=== PATIENT | female | born 1975 | race African-American/Black ===

== ENCOUNTER 2017-06-13 09:04 | Emergency (ER) | payer OTHER ==
[~2017-06-13] VITALS: Ht 160 cm; Wt 68.2 kg
[2017-06-13] MEDS ORDERED: ABX PO (09:37)
[2017-06-13 09:56] VITALS: BP 120/84
[2017-06-13 10:15] LABS: APPEARANCE,URINE CLEAR (CLEAR); GLUCOSE, URINE (UA) NEGATIVE (NEGATIVE); KETONES,URINE NEGATIVE (NEGATIVE); LEUKOCYTE ESTERASE ,URINE NEGATIVE (NEGATIVE); OCCULT BLOOD,URINE NEGATIVE (NEGATIVE); PH,URINE 7.5 (5.0-8.0); PROTEIN,URINE NEGATIVE (NEGATIVE)
[2017-06-13 10:24] LABS: RBC,URINE None Seen /HPF (0-2); WBC,URINE None Seen /HPF (0-5)
[2017-06-13] MEDS ORDERED: MetroNIDAZOLE 250 MG TABLET PO ONE (11:00)
[2017-06-15 00:07] LABS: GC DNA N.A. AMPLIFY Negative (Negative)
== END 2017-06-13 11:02 | disposition home or self-care (01) ==
LOC: EMS 09:09
DX: N76.0 Acute vaginitis (principal); B96.89 Other specified bacterial agents as the cause of diseases classified elsewhere
CPT/HCPCS: 87491; 87591; 99284

== ENCOUNTER 2017-08-03 04:51 | Emergency (ER) | payer OTHER ==
[~2017-08-03] VITALS: Ht 160 cm; Wt 61.4 kg
[~2017-08-03 04:51] MED LIST: ABX PO
[2017-08-03 06:20] VITALS: BP 119/80
[2017-08-03] MEDS ORDERED: IBUPROFEN 600 MG TABLET PO ONE (06:30)
[2017-08-03] MEDS ORDERED: CYCLOBENZAPRINE HCL 10 MG TABLET PO ONE (06:30)
== END 2017-08-03 06:49 | disposition home or self-care (01) ==
LOC: EMS 04:52
DX: M43.6 Torticollis (principal)
CPT/HCPCS: 99283

== ENCOUNTER 2018-03-30 14:37 | Emergency (ER) | payer OTHER ==
[~2018-03-30] VITALS: Ht 160 cm; Wt 140.0 kg
[2018-03-30] MEDS ORDERED: CLOTRIMAZOLE 1% 15 GM CREAM TP ONE (16:15)
[2018-03-30] MEDS ORDERED: ACETAMINOPHEN 500 MG TABLET PO ONE (16:15)
[2018-03-30] MEDS ORDERED: MetroNIDAZOLE 250 MG TABLET PO ONE (16:15)
[2018-03-30 16:52] VITALS: BP 123/82
== END 2018-03-30 17:00 | disposition home or self-care (01) ==
LOC: EMS 14:39
DX: B35.3 Tinea pedis (principal); N76.0 Acute vaginitis
CPT/HCPCS: 99284

== ENCOUNTER 2019-04-26 07:25 | Emergency (ER) | payer OTHER ==
[~2019-04-26] VITALS: Ht 160 cm; Wt 65.9 kg
[2019-04-26 09:38] VITALS: BP 140/80
== END 2019-04-26 11:16 | disposition home or self-care (01) ==
LOC: EMS 07:29
DX: K08.89 Other specified disorders of teeth and supporting structures (principal); B35.3 Tinea pedis; D17.9 Benign lipomatous neoplasm, unspecified

== ENCOUNTER 2019-05-11 11:40 | Emergency (ER) | payer OTHER ==
[~2019-05-11] VITALS: Ht 160 cm; Wt 65.9 kg
[2019-05-11] MEDS ORDERED: TRAM50TA4 PO (11:48)
[2019-05-11] MEDS ORDERED: IBUP-2070 PO (11:48)
[2019-05-11] MEDS ORDERED: KETOROLAC TROMETHAMINE 60 MG/2 ML VIAL IM ONE (12:15)
[2019-05-11 12:45] VITALS: BP 127/85
== END 2019-05-11 12:46 | disposition home or self-care (01) ==
LOC: EMS 11:40
DX: K08.89 Other specified disorders of teeth and supporting structures (principal); F12.90 Cannabis use, unspecified, uncomplicated; F17.210 Nicotine dependence, cigarettes, uncomplicated; Z79.899 Other long term (current) drug therapy
CPT/HCPCS: 96372; 99283; 99406; J1885

== ENCOUNTER 2020-02-23 20:57 | Emergency (ER) | payer OTHER ==
[~2020-02-23] VITALS: Ht 160 cm; Wt 65.9 kg
[~2020-02-23 20:57] MED LIST changes: -ABX PO; +IBUP-2070 PO; +TRAM50TA4 PO
[2020-02-23 23:25] LABS: APPEARANCE,URINE CLOUDY (CLEAR); BILIRUBIN,URINE NEGATIVE (NEGATIVE); GLUCOSE, URINE (UA) NEGATIVE (NEGATIVE); KETONES,URINE NEGATIVE (NEGATIVE); LEUKOCYTE ESTERASE ,URINE TRACE (NEGATIVE); NITRATE,URINE POSITIVE (NEGATIVE); OCCULT BLOOD,URINE NEGATIVE (NEGATIVE); PH,URINE 5.5 (5.0-8.0); PROTEIN,URINE NEGATIVE (NEGATIVE)
[2020-02-23 23:26] VITALS: BP 118/77
[2020-02-23 23:43] LABS: BACTERIA,URINE Many /HPF (None Seen); RBC,URINE None Seen /HPF (0-2); SQUAMOUS EPITHELIAL CELL,UR Few /LPF (None Seen)
== END 2020-02-24 00:23 | disposition home or self-care (01) ==
LOC: EMS 20:58
DX: N39.0 Urinary tract infection, site not specified (principal); L84 Corns and callosities
CPT/HCPCS: 87086

== ENCOUNTER 2020-04-08 18:48 | Emergency (ER) | payer OTHER ==
[~2020-04-08] VITALS: Ht 170.2 cm; Wt 75.0 kg
[2020-04-08 20:12] VITALS: BP 132/80
== END 2020-04-08 20:12 | disposition home or self-care (01) ==
LOC: EMS 18:48
DX: B02.9 Zoster without complications (principal); F17.210 Nicotine dependence, cigarettes, uncomplicated; F12.90 Cannabis use, unspecified, uncomplicated
CPT/HCPCS: 99406

== ENCOUNTER 2020-06-05 05:29 | Emergency (ER) | payer OTHER ==
[~2020-06-05] VITALS: Ht 160 cm; Wt 70.5 kg
[2020-06-05] MEDS ORDERED: LORATADINE 10 MG TABLET PO ONE (06:30)
[2020-06-05 06:54] VITALS: BP 128/88
== END 2020-06-05 06:54 | disposition home or self-care (01) ==
LOC: EMS 05:29
DX: L25.9 Unspecified contact dermatitis, unspecified cause (principal); F17.210 Nicotine dependence, cigarettes, uncomplicated
CPT/HCPCS: Z7502; Z7610

== ENCOUNTER 2020-08-27 17:53 | Emergency (ER) | payer OTHER ==
[~2020-08-27] VITALS: Ht 160 cm; Wt 68.2 kg
[2020-08-27] MEDS ORDERED: IBUP-2071 PO (18:04)
[2020-08-27] MEDS ORDERED: ACET-3385 PO (18:04)
[2020-08-27] MEDS ORDERED: KETOROLAC TROMETHAMINE 30 MG/ML VIAL IM ONE (19:30)
[2020-08-27] MEDS ORDERED: AMOXICILLIN TRIHYDRATE 250 MG CAPSULE PO ONE (19:30)
[2020-08-27] MEDS ORDERED: ACETAMINOPHEN 500 MG TABLET PO ONE (19:30)
[2020-08-27 20:02] VITALS: BP 132/87
== END 2020-08-27 20:12 | disposition home or self-care (01) ==
LOC: EMS 17:53
DX: K08.89 Other specified disorders of teeth and supporting structures (principal); F17.210 Nicotine dependence, cigarettes, uncomplicated
CPT/HCPCS: 96372; 99283; 99406; J1885

== ENCOUNTER 2021-10-01 12:00 | Emergency (ER) | payer OTHER ==
[~2021-10-01] VITALS: Ht 165.1 cm; Wt 68.2 kg
[~2021-10-01 12:00] MED LIST changes: +ACET-3385 PO; -IBUP-2070 PO; +IBUP-2071 PO; -TRAM50TA4 PO
[2021-10-01] MEDS ORDERED: KETOROLAC TROMETHAMINE 60 MG/2 ML VIAL IM ONE (15:30)
[2021-10-01 17:44] VITALS: BP 141/98
[2021-10-01] MEDS ORDERED: TRAM50TA4 PO (17:46)
== END 2021-10-01 17:55 | disposition home or self-care (01) ==
LOC: EDUNIT# 12:00 → EMS 12:08
DX: S20.212A Contusion of left front wall of thorax, initial encounter (principal); F17.210 Nicotine dependence, cigarettes, uncomplicated; Z79.899 Other long term (current) drug therapy; W01.198A Fall on same level from slipping, tripping and stumbling with subsequent striking against other object, initial encounter; Y93.89 Activity, other specified; Y92.89 Other specified places as the place of occurrence of the external cause; Y99.8 Other external cause status
CPT/HCPCS: 71101; 96372; 99283; J1885

== ENCOUNTER 2021-10-14 05:20 | Emergency (ER) | payer OTHER ==
[~2021-10-14] VITALS: Ht 167.6 cm; Wt 81.8 kg
[~2021-10-14 05:20] MED LIST changes: +TRAM50TA4 PO
[2021-10-14 06:02] VITALS: BP 147/98
[2021-10-14 07:15] LABS: COVID AG,FIA SOURCE NASOPHARYNGEAL
== END 2021-10-14 07:51 | disposition home or self-care (01) ==
LOC: EMS 05:23
DX: R05.9 Cough, unspecified (principal); Z20.822 Contact with and (suspected) exposure to COVID-19; F17.210 Nicotine dependence, cigarettes, uncomplicated; Z79.899 Other long term (current) drug therapy
CPT/HCPCS: 99283

== ENCOUNTER 2022-03-31 19:44 | Emergency (ER) | payer OTHER ==
[~2022-03-31] VITALS: Ht 160 cm; Wt 70.5 kg
[2022-03-31 20:16] VITALS: BP 139/84
[2022-03-31] MEDS ORDERED: IBUP-2070 PO (22:10)
[2022-03-31] MEDS ORDERED: CLOT113C TP (22:10)
[2022-03-31] MEDS ORDERED: CYCLOBENZAPRINE HCL 10 MG TABLET PO ONE (22:15)
[2022-03-31] MEDS ORDERED: IBUPROFEN 600 MG TABLET PO ONE (22:15)
[2022-03-31] MEDS ORDERED: LIDOCAINE 5% TRANSDERMAL PATCH TD ONE (22:15)
== END 2022-03-31 22:38 | disposition home or self-care (01) ==
LOC: EMS 19:44
DX: M54.50 Low back pain, unspecified (principal); B35.3 Tinea pedis; F17.210 Nicotine dependence, cigarettes, uncomplicated
CPT/HCPCS: 99284; Z7502; Z7610

== ENCOUNTER 2024-09-30 20:32 | Emergency (ER) | payer OTHER ==
[~2024-09-30] VITALS: Ht 160 cm; Wt 70.0 kg
[~2024-09-30 20:32] MED LIST changes: +CLOT113C TP; +IBUP-1492 PO; +IBUP-1493 PO; -IBUP-2071 PO; -TRAM50TA4 PO; +TRAM50TA5 PO
[2024-09-30 21:00] VITALS: BP 139/98; PULSE 73; RESP 18; TEMP 98.5; O2SAT 98
== END 2024-09-30 21:57 | disposition left against medical advice (07) ==
LOC: EMS 20:32
DX: F41.9 Anxiety disorder, unspecified (principal); Z53.21 Procedure and treatment not carried out due to patient leaving prior to being seen by health care provider

== ENCOUNTER → 2025-06-22 | Emergency (ER) | payer OTHER ==
[~2025-06-22] VITALS: Ht 160 cm; Wt 75.0 kg
[~2025-06-22] MED LIST changes: +BETA15CR46 TP; +SULF-261 PO
[2025-06-22 20:57] VITALS: BP 129/86; PULSE 83; RESP 16; TEMP 97.9; O2SAT 98
== END | disposition still patient (30) ==
LOC: EMS 20:43
DX: L03.221 Cellulitis of neck (principal); A53.9 Syphilis, unspecified; L30.9 Dermatitis, unspecified; F31.9 Bipolar disorder, unspecified; F17.210 Nicotine dependence, cigarettes, uncomplicated; Z79.899 Other long term (current) drug therapy
CPT/HCPCS: 86592; 99283